=== PATIENT | female | born 1965 | race African-American/Black ===

== ENCOUNTER 2017-06-14 09:30 | Emergency (ER) | payer OTHER ==
[2017-06-14 09:39] VITALS: BMI 26.4
[2017-06-14 10:42] LABS: BASOPHIL 1.3 % (0-2.0); EOSINOPHIL 2.5 % (0-4.5); MCH 32.5 pg (25.7-33.7); MEAN CELL VOLUME 95.5 fl (80-96); MEAN PLT VOLUME 7.3 fl (7.5-11.1); NEUTROPHILS 44.1 % (42.8-82.8); PLATELET COUNT 313 K/MM3 (134-434); RDW 12.9 % (11.6-15.6); WHITE BLOOD COUNT 7.1 K/mm3 (4.0-10.0)
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
[2017-06-14 11:05] LABS: ALBUMIN 4.1 g/dl (3.4-5.0); ANION GAP 6 (8-16); BILIRUBIN,TOTAL 0.7 mg/dL (0.2-1.0); CALCIUM 9.7 mg/dL (8.5-10.1); CO2 28 mmol/L (21-32); CREATININE 0.6 mg/dL (0.55-1.02); GLUCOSE,RANDOM 86 mg/dL (74-106); SGOT/AST 17 U/L (15-37); SGPT/ALT 25 U/L (12-78); TOT PROT 7.1 g/dl (6.4-8.2)
[2017-06-14 11:07] LABS: ALK PHOS 74 U/L (45-117); TROPONIN I < 0.02 ng/ml (0.00-0.05)
[2017-06-14 11:27] LABS: URINE APPEARANCE CLEAR; URINE BILIRUBIN NEGATIVE (NEGATIVE); URINE BLOOD NEGATIVE (NEGATIVE); URINE COLOR YELLOW; URINE GLUCOSE (UA) NEGATIVE (NEGATIVE); URINE KETONE NEGATIVE (NEGATIVE); URINE LEUK ESTERASE NEGATIVE (NEGATIVE); URINE NITRITE NEGATIVE (NEGATIVE); URINE PROTEIN NEGATIVE (NEGATIVE); URINE UROBILINOGEN NEGATIVE mg/dL (0.2-1.0)
[2017-06-14 12:13] VITALS: BP 138/78; PULSE 64; TEMP 98.3
--- NOTE | 2017-06-14 13:01 | EKG ---
Test Reason : Blood Pressure : / mmHG Vent. Rate : 057 BPM Atrial Rate : 057 BPM P-R Int : 156 ms QRS Dur : 088 ms QT Int : 424 ms P-R-T Axes : 064 036 029 degrees QTc Int : 412 ms SINUS BRADYCARDIA WITH SINUS ARRHYTHMIA OTHERWISE NORMAL ECG WHEN COMPARED WITH ECG OF 30-MAR-2015 07:42, VENT. RATE HAS DECREASED BY [address] NO LONGER DEPRESSED IN INFERIOR LEADS T WAVE INVERSION NO LONGER EVIDENT IN ANTERIOR LEADS Confirmed by CARRINGTON COOK MD ([id number]) on 06/14/2017 1:01:34 PM Referred By: Confirmed By:CARRINGTON COOK MD
== END 2017-06-14 12:05 | disposition home or self-care (01) ==
LOC: JER 09:30
DX: R06.02 Shortness of breath (principal); J44.9 Chronic obstructive pulmonary disease, unspecified; I10 Essential (primary) hypertension; E78.00 Pure hypercholesterolemia, unspecified; F17.210 Nicotine dependence, cigarettes, uncomplicated
CPT/HCPCS: 36415; 71010-TC; 80053; 81003; 82550; 82553; 83880; 84484; 85025; 93005; 93010; 99283-25

== ENCOUNTER 2018-06-23 10:03 | Emergency (ER) | payer SELFPAY ==
[2018-06-23 10:07] VITALS: BP 150/95; TEMP 98.5; BMI 25.4
[2018-06-23] MEDS ORDERED: AZITHROMYCIN 250 MG TABLET PO ONE (10:29)
[2018-06-23] MEDS ORDERED: predniSONE 20 MG TABLET (UD) PO ONE (10:29)
[2018-06-23] MEDS ORDERED: predniSONE 20 MG TABLET (UD) ONE (10:31)
[2018-06-23] MEDS ORDERED: AZITHROMYCIN 500 MG TABLET ONE (10:31)
[2018-06-23] MEDS ORDERED: ALBUTEROL SO4 2.5/IPRATROPIUM 0.5 INH SOL 3 ML VIAL.NEB. NEB ONE ×2 (10:32→11:30)
--- NOTE | 2018-06-23 10:36 | PDOC ---
History of Present Illness - General Chief Complaint: Respiratory Stated Complaint: SOB Time Seen by Provider: 06/23/18 10:08 History Source: Patient - History of Present Illness Timing/Duration: reports: yesterday Associated Symptoms: reports: cough, shortness of breath, wheezing. denies: fever/chills Past History - Past Medical History Allergies/Adverse Reactions: Allergies Allergy/AdvReac Type Severity Reaction Status Date / Time No Known Allergies Allergy Verified 06/23/18 10:06 Home Medications: Ambulatory Orders Albuterol Sulfate Inhaler - [Ventolin HFA Inhaler -] 1 - 2 inh PO Q4H #1 inhaler 06/14/17 Amlodipine Besylate [Norvasc -] 5 mg PO DAILY 06/14/17 Atorvastatin Ca [Lipitor] 20 mg PO HS 06/14/17 Duloxetine HCl [Cymbalta] 60 mg PO BID 06/14/17 Meloxicam [Mobic] 15 mg PO DAILY 06/14/17 Nicotine Patch [Nicoderm Patch -] 1 patch TD DAILY 06/14/17 Nicotine Polacrilex [Nicotine Gum] 4 mg BC DAILY 06/14/17 Albuterol Sulfate Inhaler - [Ventolin HFA Inhaler -] 1 - 2 inh PO Q4H #1 inhaler 06/23/18 Azithromycin 250 mg PO DAILY #4 tablet 06/23/18 Prednisone [Deltasone] 40 mg PO DAILY #8 tablet 06/23/18 Anemia: No Asthma: No Cancer: No Cardiac Disorders: No CVA: No COPD: No CHF: No DVT: No Dementia: No Diabetes: No GI Disorders: No Disorders: No HTN: Yes Hypercholesterolemia: Yes Liver Disease: No Seizures: No Thyroid Disease: No - Surgical History Abdominal Surgery: No Appendectomy: No Cardiac Surgery: No Cholecystectomy: No Lung Surgery: No Neurologic Surgery: No Orthopedic Surgery: No - Immunization History TDAP Vaccination: No Immunization Up to Date: No - Suicide/Smoking/Psychosocial Hx Smoking Status: Yes Smoking History: Current every day smoker Have you smoked in the past 12 months: Yes Number of Cigarettes Smoked Daily: 5 Information on smoking cessation initiated: No 'Breaking Loose' booklet given: 06/14/17 Hx Alcohol Use: No Drug/Substance Use Hx: No Substance Use Type: None Hx Substance Use Treatment: No Respiratory Specific PMHX - Complaint Specific PMHX Angina: No Review of Systems - Review of Systems Respiratory: Yes: Cough, Shortness of Breath, Wheezing Cardiac (ROS): No: Chest Pain *Physical Exam - Vital Signs Last Vital Signs Temp Pulse Resp BP Pulse Ox 98.5 F 97 H 20 150/95 98 06/23/18 10:04 06/23/18 10:04 06/23/18 10:04 06/23/18 10:04 06/23/18 10:04 - Physical Exam General Appearance: Yes: Appropriately Dressed, Mild Distress HEENT: positive: Normal Voice Neck: positive: Supple Respiratory/Chest: positive: Wheezing. negative: Respiratory Distress, Accessory Muscle Use Cardiovascular: positive: Regular Rate, S1, S2 Extremity: negative: Pedal Edema Integumentary: positive: Dry, Warm Neurologic: positive: Fully Oriented, Alert, Normal Mood/Affect ED Treatment Course - RADIOLOGY Radiology Studies Ordered: Category Date Time Status CHEST PA & LAT [RAD] Stat Radiology 06/23/18 10:11 Completed Medical Decision Making - Medical Decision Making 06/23/18 10:29 53-year-old female, history of hypertension, hyperlipidemia, COPD, not on oxygen , continues to smoke, here with mostly dry cough with shortness of breath and wheezing since yesterday. No chest pain. Currently has no pump or neb machine at home. 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 Was told she had COPD on ED visit here in 2017. Denies h/o asthma See exam M/l COPD flare Stable but with diffuse wheezing CXR neg -nebs -pred -reassess 06/23/18 12:05 Wheezing significantly improved and patient able to ambulate without shortness of breath. Declines further treatment or observation in ED, states she feels well enough to be discharged. Appropriate prescription sent to pharmacy and patient given pulmonary referral and also instructed to follow-up with her PMD. Smoking cessation strongly encouraged *DC/Admit/Observation/Transfer Diagnosis at time of Disposition: COPD exacerbation - Discharge Dispostion Disposition: HOME Condition at time of disposition: Improved - Prescriptions Prescriptions: Albuterol Sulfate Inhaler - [Ventolin HFA Inhaler -] 1 - 2 inh PO Q4H #1 inhaler Azithromycin 250 mg PO DAILY #4 tablet Prednisone [Deltasone] 40 mg PO DAILY #8 tablet - Referrals Referrals: Ac Faria MD, [Primary Care Provider] - García Duke MD [Staff Physician] - - Patient Instructions Printed Discharge Instructions: DI for Chronic Obstructive Pulmonary Disease, Serious Ways to Stop Smoking Additional Instructions: You were treated for COPD exacerbation is most likely from prolonged history of smoking. You need to seriously consider smoking cessation to prevent further complications, including being oxygen dependent and cancer. Take medications as prescribed. Please follow-up with Dr. Duke of pulmonary in 1-2 weeks. Also follow-up with your primary care physician - Post Discharge Activity
[2018-06-23] MEDS: ALBUTEROL SO4 2.5/IPRATROPIUM 0.5 INH SOL 3 ML VIAL.NEB. NEB SCH ×3 (10:40→11:38)
[2018-06-23 11:39] VITALS: PULSE 76
== END 2018-06-23 12:16 | disposition home or self-care (01) ==
LOC: JERFT 10:03
PROC: 3E0F7GC Introduction of Other Therapeutic Substance into Respiratory Tract, Via Natural or Artificial Opening (ICD-10-PCS; principal; 2018-06-23)
DX: J44.1 Chronic obstructive pulmonary disease with (acute) exacerbation (principal); I10 Essential (primary) hypertension; E78.5 Hyperlipidemia, unspecified
CPT/HCPCS: 71046-TC-FY; 99281-25; J7620